=== PATIENT | female | born 1975 | race Caucasian/White ===

== ENCOUNTER 2017-12-15 02:12 | Emergency (ER) | payer MEDICAID ==
[~2017-12-15] VITALS: Ht 162.6 cm; Wt 54.0 kg
[2017-12-15] MEDS ORDERED: CEFTRIAXONE SODIUM 250 MG/VIAL IM ONE (08:45)
[2017-12-15] MEDS ORDERED: AZITHROMYCIN 500 MG TABLET PO ONE (08:45)
[2017-12-15] MEDS ORDERED: ONDANSETRON HCL 4MG TABLET PO ONE (08:45)
[2017-12-15] MEDS ORDERED: LIDOCAINE HCL 1% 20ML VIAL (Pyxis) INJ INFIL ONE (08:45)
[2017-12-15 09:25] LABS: CLARITY URINE CLEAR (CLEAR); COLOR URINE YELLOW (YELLOW); KETONES URINE NEGATIVE (NEGATIVE); LEUKOCYTE ESTERASE URINE NEGATIVE (NEGATIVE); NITRITE URINE NEGATIVE (NEGATIVE); OCCULT BLOOD URINE 3+ (NEGATIVE); PROTEIN URINE NEGATIVE (NEGATIVE); SPECIFIC GRAVITY URINE 1.018 (1.005-1.030); UROBILINOGEN URINE 0.2 E.U./dL (0.2-1.0)
[2017-12-15] MEDS ORDERED: IBUPROFEN 600MG TABLET PO STA (09:32)
[2017-12-15 10:18] VITALS: BP 109/68
== END 2017-12-15 11:02 | disposition home or self-care (01) ==
LOC: ER 02:12
DX: N72 Inflammatory disease of cervix uteri (principal); E03.9 Hypothyroidism, unspecified
CPT/HCPCS: 81003; 81025; 87210; 96372; 99284; J0696; J3490; Q0162

== ENCOUNTER 2018-02-15 21:55 | Emergency (ER) | payer MEDICARE ==
[~2018-02-15] VITALS: Ht 162.6 cm; Wt 57.0 kg
[2018-02-16] MEDS ORDERED: AZITHROMYCIN 500 MG TABLET PO ONE (03:45)
[2018-02-16] MEDS ORDERED: CEFTRIAXONE SODIUM 250 MG/VIAL IM ONE (03:45)
[2018-02-16 04:04] LABS: CLARITY URINE CLEAR (CLEAR); COLOR URINE YELLOW (YELLOW); KETONES URINE NEGATIVE (NEGATIVE); LEUKOCYTE ESTERASE URINE TRACE (NEGATIVE); NITRITE URINE NEGATIVE (NEGATIVE); OCCULT BLOOD URINE TRACE (NEGATIVE); PROTEIN URINE NEGATIVE (NEGATIVE); SPECIFIC GRAVITY URINE 1.011 (1.005-1.030); UROBILINOGEN URINE 0.2 E.U./dL (0.2-1.0)
[2018-02-16 04:05] LABS: UCG SCREEN NEGATIVE
[2018-02-16 06:01] VITALS: BP 120/68
== END 2018-02-16 06:03 | disposition home or self-care (01) ==
LOC: ER 21:55
DX: N30.90 Cystitis, unspecified without hematuria (principal); B00.9 Herpesviral infection, unspecified; E03.9 Hypothyroidism, unspecified
CPT/HCPCS: 81003; 81025; 96372; 99283; J0696; Z7610